=== PATIENT | female | born 1985 | race African-American/Black ===

== ENCOUNTER 2024-08-01 12:35 | Emergency (ER) | payer OTHER ==
[~2024-08-01] VITALS: Ht 157.5 cm; Wt 81.6 kg
[2024-08-01 12:46] VITALS: TEMP 98.3
[2024-08-01] MEDS ORDERED: METHOCARBAMOL750 MG PO (14:38)
[2024-08-01 14:47] VITALS: PULSE 88; RESP 17; O2SAT 100
== END 2024-08-01 14:40 | disposition home or self-care (01) ==
LOC: ER 12:59
DX: S16.1XXA Strain of muscle, fascia and tendon at neck level, initial encounter (principal); R10.11 Right upper quadrant pain; M79.602 Pain in left arm; M79.605 Pain in left leg; M79.604 Pain in right leg; V43.52XA Car driver injured in collision with other type car in traffic accident, initial encounter; Y92.488 Other paved roadways as the place of occurrence of the external cause; D25.9 Leiomyoma of uterus, unspecified
CPT/HCPCS: 70450; 72125; 99282